=== PATIENT | male | born 1945 | race Caucasian/White ===

== ENCOUNTER 2018-11-12 17:49 | Inpatient (IN) | payer MEDICARE, OTHER ==
[~2018-11-12] VITALS: Ht 165.1 cm; Wt 72.6 kg
[~2018-11-12 17:49] MED LIST: ACET325T53 PO; ATOR40TA PO; BUPR-96 PO; DIVA500T4 PO; HYDR-4384 PO; LISI-607 PO; MAGN400O6 PO; NITR0.4T48 SL; PEG15DRO4 EACHEYE; TRAZ-214 PO
--- NOTE | 2018-11-12 18:10 | NUR ---
BIB FACILITY STAFF FOR PSYCH EVAL. AGRESSIVE AND VERBALLY ABUSIVE TO STAFF. NO DISTRESS NOTED, KEPT COMFORTABLE. WILL CONTINUE TO MONITOR.
--- NOTE | 2018-11-12 18:22 | NUR ---
CALLED PINKY ON HER WAY
[2018-11-12 18:46] LABS: BASOPHILS % (AUTO) 0.4 % (0.0-2.0); EOSINOPHILS % (AUTO) 3.4 % (0.0-6.0); HEMATOCRIT 41 % (39-51); HEMOGLOBIN 14.1 g/dL (13.5-17.5); LYMPHOCYTES # (AUTO) 1.6 /CMM (0.8-4.8); LYMPHOCYTES % (AUTO) 16.3 % (20.0-44.0); MEAN CORPUSCULAR HGB CONC 34 g/dl (31.0-36.0); MEAN CORPUSCULAR VOLUME 93 fL (80-96); MONOCYTES # (AUTO) 0.9 /CMM (0.1-1.30); MONOCYTES % (AUTO) 8.7 % (2.0-12.0); NEUTROPHILS % (AUTO) 71.2 % (43.0-81.0); PLATELET COUNT (AUTO) 227 /CMM (150-450); RED BLOOD CELL COUNT(AUTO) 4.42 MIL/uL (4.5-6.0); WHITE BLOOD COUNT (AUTO) 9.9 K/uL (4.3-11.0)
[2018-11-12 18:55] LABS: CALCIUM, SERUM 8.7 mg/dL (8.5-10.1); CARBON DIOXIDE 30 mmol/L (21-32); CHLORIDE 106 mmol/L (98-107); CREATININE 0.9 mg/dL (0.6-1.3); GLUCOSE 106 mg/dL (74-106); POTASSIUM 4.5 mmol/L (3.5-5.1); SODIUM SERUM 140 mmol/L (136-145); UREA NITROGEN, BLOOD 20 mg/dL (7-18)
[2018-11-12 19:05] LABS: ALANINE AMINOTRANSFERASE 23 U/L (12-78); ALBUMIN 3.4 g/dL (3.4-5.0); ALCOHOL, BLOOD < 3 mg/dL (0-0); ALKALINE PHOSPHATASE 135 U/L (46-116); ASPARTATE AMINOTRANSFERASE 17 U/L (15-37); BILIRUBIN,DIRECT 0.1 mg/dL (0.0-0.2); BILIRUBIN,TOTAL 0.2 mg/dL (0.2-1.0); TOTAL PROTEIN, SERUM 7.9 g/dL (6.4-8.2)
[2018-11-12 19:06] LABS: SALICYLATE < 2.8 mg/dL (2.8-20.0)
--- NOTE | 2018-11-12 19:28 | NUR ---
OBTAINED URINE SAMPLE AND SENT TO LAB. ENDORSED TO [facility] FOR JESUS.
[2018-11-12] MEDS ORDERED: IV NS 0.9% 1,000 ML BAG IV ONE (19:30)
--- NOTE | 2018-11-12 19:30 | NUR ---
CALLED NURSING SUP FOR TELE BED.
[2018-11-12 19:31] LABS: APPEARANCE,URINE Slightly Cloudy (CLEAR); BILIRUBIN,URINE Negative (NEGATIVE); BLOOD, URINE Moderate Ery/uL (NEGATIVE); COLOR,URINE Yellow (YELLOW); KETONES,URINE Trace (NEGATIVE); LEUKOCYTE ESTERASE ,URINE Large (NEGATIVE); NITRITE, URINE Positive (NEGATIVE); PH,URINE 5.5 (5.0-8.0); PROTEIN,URINE 30 mg/dl (NEGATIVE); UGLUCOSE Negative (NEGATIVE); UROBILINOGEN,URINE 0.2 EU/dL (0.2)
[2018-11-12 20:07] LABS: WBC,URINE 51-80 /HPF (0-3)
[2018-11-12 20:08] LABS: BACTERIA,URINE Many /HPF (None Seen); SQUAMOUS EPITHELIAL CELL,UR Few /HPF (None Seen)
[2018-11-12] MEDS ORDERED: ACETAMINOPHEN 325 MG TABLET ONE (20:09)
--- NOTE | 2018-11-12 20:27 | NUR ---
PT GOING TO 214-A.
[2018-11-12] MEDS ORDERED: LORAZEPAM INJ 2 MG/ML VIAL ONE (20:28)
[2018-11-12] MEDS ORDERED: LORAZEPAM 1 MG TABLET PO ONE (20:30)
[2018-11-12] MEDS ORDERED: LORAZEPAM INJ 2 MG/ML VIAL IV ONE (20:30)
[2018-11-12] MEDS ORDERED: ACETAMINOPHEN 325 MG TABLET PO ONE (20:30)
--- NOTE | 2018-11-12 20:38 | NUR ---
REPORT CALLED TO JENNIFER DIAMOND.
--- NOTE | 2018-11-12 21:00 | NUR ---
GPS HIGHWAY SAFETY ENGINEER NOTES: ADMITTED A 73YO MALE FROM [facility] ON [address] HOLD FOR GRAVE DISABILITY, PER HOLD, PATIENT IS CONFUSED, DISORIENTED, STATED THAT THEY ARE FORCING ME TO EAT AND THAT THEY PUT SOMETHING IN MY FOOD. ALSO STATED IN THE HOLD THAT WHILE AT THE ER, PATIENT IS CONSTANTLY YELLING AND SCREAMING. PATIENT IS UNDER THE CARE OF DR. BRAXTON AND IRISH MERRILL,PAINT MIXER MACHINE FOR [facility]. UPON FACE TO FACE EVALUATION, PATIENT PRESENTS ALERT AND ORIENTED X1, VERY CONFUSED, DISORGANIZED, UNPREDICTABLE, YELLING AND SCREAMING. PATIENT HAS LEFT SIDED WEAKNESS SUCH THAT HE IS CONFINED TO BED AND NEEDS TO BE REPOSITIONED Q2H. SKIN AND BODY ASSESSMENT DONE WITH REMY AND ARTEMIO HERRERA'S- NO NOTED SKIN ISSUES THIS TIME. SACRAL AREA IS CLEAR. BELONGINGS AND CONTRABAND WERE CHECKED. PATIENT IS A ETHIOPIAN SPEAKER AND WHEN TALKED TO PATIENT DOES NOT REALLY ANSWER THE QUESTIONS WELL, AND THUS UNABLE TO CARRY A MEANINGFUL CONVERSATION. MED RECON DONE BY IRISH MERRILL, HE CAME INTO THE UNIT TO DO ASSESSMENT. CARE PLAN STARTED. Q15 MIN CHECKS INITIATED. PATIENT DOES NOT SHOW ANY SIGNS, NOR VERBALIZED ANY SUICIDAL THOUGHTS OR PLANS THIS TIME. WILL MONITOR PATIENT FOR ANY CHANGES IN MOOD AND BEHAVIOR. WILL ENDORSE PATIENT TO THE NEXT SHIFT.
[2018-11-12] MEDS ORDERED: CEPHALEXIN MONOHYDRATE 500 MG CAPSULE PO STA (21:25)
[2018-11-12 21:30] VITALS: BP 155/93
[2018-11-12] MEDS ORDERED: NA P133E RC (22:00)
[2018-11-12] MEDS ORDERED: TRAZ-214 PO (22:00)
[2018-11-12] MEDS ORDERED: BISA10SU61 RC (22:00)
[2018-11-12] MEDS ORDERED: MAG HYDROX/AL HYDROX/SIMETH 30 ML UDC PO PRN (22:00)
[2018-11-12] MEDS ORDERED: ASPI-1169 PO (22:00)
[2018-11-12] MEDS ORDERED: ACETAMINOPHEN 325 MG TABLET PO PRN (22:00)
[2018-11-13] MEDS ORDERED: NA PHOS,M-B/NA PHOS,DI-BA 1 EA ENEMA RC PRN
[2018-11-13] MEDS ORDERED: NITROGLYCERIN 0.4 MG/TAB BOTTLE SL PRN
[2018-11-13] MEDS ORDERED: BISACODYL SUPP (10 MG) 10 MG/SUPP.RECT SUPP.RECT RC PRN
[2018-11-13] MEDS ORDERED: MAGNESIUM HYDROXIDE 30 ML UDC PO PRN
[2018-11-13 02:58] LABS: OCCULT BLOOD STOOL NEGATIVE (NEGATIVE)
[2018-11-13] MEDS: CEPHALEXIN MONOHYDRATE 500 MG CAPSULE PO SCH ×5 (06:30→23:07)
[2018-11-13 07:40] LABS: CREATININE 0.8 mg/dL (0.6-1.3)
[2018-11-13 07:45] LABS: CHOLESTEROL 87 mg/dL (<200); HDL CHOLESTEROL 33 mg/dL (40-60); LDL 50 mg/dL (0-99); TRIGLYCERIDES 68 mg/dL (30-150)
[2018-11-13 08:00] VITALS: BP 107/73
[2018-11-13] MEDS: LISINOPRIL (5MG) 5 MG TABLET PO SCH ×2 (08:33→16:34)
[2018-11-13] MEDS: ASPIRIN 81 MG TAB.CHEW PO SCH (08:33)
[2018-11-13] MEDS: ACETAMINOPHEN 325 MG TABLET PO SCH ×2 (08:33→16:35)
[2018-11-13] MEDS: POLYVINYL ALCOHOL 15 ML BOTTLE EACHEYE SCH ×2 (08:35→16:47)
--- NOTE | 2018-11-13 10:22 | NUR ---
SW contacted [facility] Address: [place] [address] and spoke with Rekha, safety coordinator who stated pt will return to their facility.
--- NOTE | 2018-11-13 11:29 | NUR ---
WOUND CARE CONSULT: PT PRESENTS WITH INCONTINENCE. RECOMMENDATIONS MADE FOR SKIN PROTECTION. DISCUSSED WITH NURSING STAFF. CURRENT YOLANDA SCORE IS 14. THICKENED TOENAILS NOTED. WILL SEE PRN. IN AGREEMENT WITH PLAN OF CARE.
[2018-11-13] MEDS ORDERED: Z GUARD REMEDY 2 OZ OINT TP PRN (12:00)
[2018-11-13] MEDS: Z GUARD REMEDY 2 OZ OINT TP SCH (13:35)
--- NOTE | 2018-11-13 14:07 | NUR ---
Group Note: Pt refused to participate in the group session when approached by the SW. Pt appeared to be confused, disoriented and disorganized.
[2018-11-13] MEDS: LORAZEPAM 0.5 MG TABLET PO PRN (14:22)
--- NOTE | 2018-11-13 14:27 | NUR ---
GPS/RN-NOTES PATIENT SCREAMING AND YELLING IN MACEDONIAN USING FOUL LANGUAGES, ONE MACEDONIAN SPEAKING STAFF TALK AND REDIRECTED PATIENT. PER STAFF PATIENT IS TALKING NONSENSICAL. ATIVAN 0.5MG P.O GIVEN PRN ORDER. WILL CONT. MONITORING FOR SAFETY AND BEHAVIOR.ALL NEEDS ATTENDED AND ANTICIPATED.
--- NOTE | 2018-11-13 15:28 | NUR ---
SW contacted pts daughter Jeanne [phone] for collateral information and discharge planning. SW also discussed pts treatment plan with daughter who agreed. 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 Daughter stated that pt is also partially blind. Daughter mentioned that she is aware of pts verbal aggression and stated he has been that way all his life.
[2018-11-13 16:00] VITALS: BP 164/86
[2018-11-13] MEDS: DIVALPROEX SODIUM 125 MG CAP.SPRINK PO SCH ×2 (16:33→22:00)
[2018-11-13 20:29] VITALS: BP 136/79
[2018-11-13] MEDS: QUETIAPINE FUMARATE 25 MG TABLET PO SCH (22:00)
[2018-11-13] MEDS: TEMAZEPAM 7.5 MG CAPSULE PO PRN (22:01)
[2018-11-13] MEDS: ATORVASTATIN 40 MG TABLET PO SCH (22:03)
[2018-11-14] MEDS: CEPHALEXIN MONOHYDRATE 500 MG CAPSULE PO SCH ×3 (05:49→17:01)
[2018-11-14 08:00] VITALS: BP 126/77
[2018-11-14] MEDS: DIVALPROEX SODIUM 125 MG CAP.SPRINK PO SCH ×2 (09:10→21:18)
[2018-11-14] MEDS: ASPIRIN 81 MG TAB.CHEW PO SCH (09:10)
[2018-11-14] MEDS: ACETAMINOPHEN 325 MG TABLET PO SCH ×2 (09:10→16:38)
[2018-11-14] MEDS: LISINOPRIL (5MG) 5 MG TABLET PO SCH ×2 (09:11→16:38)
[2018-11-14] MEDS: Z GUARD REMEDY 2 OZ OINT TP SCH (09:12)
[2018-11-14] MEDS: POLYVINYL ALCOHOL 15 ML BOTTLE EACHEYE SCH ×2 (09:12→16:47)
--- NOTE | 2018-11-14 09:17 | NUR ---
INITIAL DISCHARGE PLAN: Per daughter Jeanne [phone] pt will return to [facility] [place] Address: [address] , [place] [address] . Rachell confirmed with Rekha precision farming coordinator who stated pt is able to return once stable. SW will help form a safe and proper discharge in collaboration with .
--- NOTE | 2018-11-14 15:58 | NUR ---
Group Note: Pt refused to participate in the group session when approached by the SW. Pt appeared to be confused, disoriented and disorganized.
[2018-11-14 16:00] VITALS: BP 133/79
[2018-11-14] MEDS: QUETIAPINE FUMARATE 25 MG TABLET PO SCH ×2 (16:37→22:07)
[2018-11-14] MEDS: LORAZEPAM 0.5 MG TABLET PO PRN (19:54)
--- NOTE | 2018-11-14 19:58 | NUR ---
PATIENT YELLING SCREAMING, ATIVAN 0.5 MG GIVEN, PATIENT SPIT OUT MEDICATION, SENIOR FINANCIAL MADE AWARE, PATIENT ALSO STATED, "NO, NO, NO" UNABLE TO UNDERSTAND, PATIENT IS A/O X1, CONFUSED.
[2018-11-14 20:00] VITALS: BP 120/81
[2018-11-14] MEDS: TEMAZEPAM 7.5 MG CAPSULE PO PRN (20:21)
[2018-11-14] MEDS: HYDROCODONE/APAP 5/325MG 1 EACH TABLET PO PRN (20:22)
--- NOTE | 2018-11-14 20:25 | NUR ---
PATIENT YELLING SCREAMING, CONFUSED, TEMAZEPAM 7.5 MG AND NORCO 5/325 MG TAB PO GIVEN
--- NOTE | 2018-11-14 22:00 | NUR ---
REFUSED CALAMINE LOTION, PREFERS ANOTHER ONE, SAID THAT HE WILL LET ME KNOW IN THE MORNING.
[2018-11-14] MEDS: ATORVASTATIN 40 MG TABLET PO SCH (22:11)
[2018-11-15] MEDS: HYDROCODONE/APAP 5/325MG 1 EACH TABLET PO PRN (05:13)
[2018-11-15] MEDS: CEPHALEXIN MONOHYDRATE 500 MG CAPSULE PO SCH ×5 (05:54→23:44)
[2018-11-15 08:00] VITALS: BP 110/68
[2018-11-15] MEDS: POLYVINYL ALCOHOL 15 ML BOTTLE EACHEYE SCH ×2 (08:48→17:24)
[2018-11-15] MEDS: ASPIRIN 81 MG TAB.CHEW PO SCH (08:49)
[2018-11-15] MEDS: ACETAMINOPHEN 325 MG TABLET PO SCH ×2 (08:50→17:27)
[2018-11-15] MEDS: LISINOPRIL (5MG) 5 MG TABLET PO SCH ×2 (08:50→17:25)
[2018-11-15] MEDS: DIVALPROEX SODIUM 125 MG CAP.SPRINK PO SCH ×2 (08:50→21:20)
[2018-11-15] MEDS: Z GUARD REMEDY 2 OZ OINT TP SCH (08:51)
[2018-11-15] MEDS: QUETIAPINE FUMARATE 25 MG TABLET PO SCH ×3 (08:51→21:19)
--- NOTE | 2018-11-15 14:58 | NUR ---
GROUP NOTE: Pt unable to participate in group due to his medical condition. Pt is unable to walk due to his body being half paralyzed and also being partly blind. Pt refuses to leave his room.
[2018-11-15 16:00] VITALS: BP 127/85
--- NOTE | 2018-11-15 18:52 | NUR ---
Arrived and received patient in bedroom sleeping. Patient is alert and oriented x1 to self only. Patient is confused, incontinent and bed bound. Patient is medication compliant and takes medication crushed in apple sauce. Redirected and reoriented patient to unit and surroundings. Assisted patient in completing ADLs as tolerated. Q15 minute safety and behavior checks as needed. Patient is in bedroom sleeping with no distress noted at this time. Will continue with plan of care.
[2018-11-15 20:00] VITALS: BP 119/77
[2018-11-15] MEDS: ATORVASTATIN 40 MG TABLET PO SCH (21:20)
[2018-11-16] MEDS: LORAZEPAM 0.5 MG TABLET PO PRN (04:42)
--- NOTE | 2018-11-16 04:44 | NUR ---
RN NOTES PATIENT YELLING, SCREAMING, ATIVAN 0.5 MG GIVEN WITH APPLESAUCE. WILL CONTINUE TO MONITOR PATIENT.
[2018-11-16] MEDS: CEPHALEXIN MONOHYDRATE 500 MG CAPSULE PO SCH ×3 (05:51→17:35)
[2018-11-16 08:00] VITALS: BP 130/82
[2018-11-16] MEDS: DIVALPROEX SODIUM 125 MG CAP.SPRINK PO SCH ×2 (09:41→21:05)
[2018-11-16] MEDS: POLYVINYL ALCOHOL 15 ML BOTTLE EACHEYE SCH ×2 (09:41→17:33)
[2018-11-16] MEDS: ASPIRIN 81 MG TAB.CHEW PO SCH (09:41)
[2018-11-16] MEDS: ACETAMINOPHEN 325 MG TABLET PO SCH ×2 (09:41→17:34)
[2018-11-16] MEDS: LISINOPRIL (5MG) 5 MG TABLET PO SCH ×2 (09:42→17:34)
[2018-11-16] MEDS: QUETIAPINE FUMARATE 25 MG TABLET PO SCH ×3 (09:42→21:06)
[2018-11-16] MEDS: Z GUARD REMEDY 2 OZ OINT TP SCH (09:43)
--- NOTE | 2018-11-16 12:30 | NUR ---
len li fuse spooler in to see pt.
[2018-11-16] MEDS: MAGNESIUM HYDROXIDE 30 ML UDC PO PRN (13:22)
--- NOTE | 2018-11-16 13:22 | NUR ---
with milling machine operator established pt. constipated.given mom 1 oz.
[2018-11-16 16:00] VITALS: BP 142/89
--- NOTE | 2018-11-16 18:46 | NUR ---
no change in status.
[2018-11-16 20:16] VITALS: BP 128/92
[2018-11-16] MEDS: HYDROCODONE/APAP 5/325MG 1 EACH TABLET PO PRN (20:20)
[2018-11-16] MEDS: ATORVASTATIN 40 MG TABLET PO SCH (21:06)
[2018-11-16] MEDS: TEMAZEPAM 7.5 MG CAPSULE PO PRN (21:10)
--- NOTE | 2018-11-16 21:22 | NUR ---
AT 2020, C/O HEADACHE, MOANING, RESTLESS, SCREAMING,, NORCO 5/325 MG TAB PO GIVEN.
[2018-11-17] MEDS: CEPHALEXIN MONOHYDRATE 500 MG CAPSULE PO SCH ×5 (00:44→23:03)
[2018-11-17 08:00] VITALS: BP 143/96
[2018-11-17] MEDS: POLYVINYL ALCOHOL 15 ML BOTTLE EACHEYE SCH ×2 (09:49→17:26)
[2018-11-17] MEDS: LISINOPRIL (5MG) 5 MG TABLET PO SCH ×2 (09:50→17:25)
[2018-11-17] MEDS: DIVALPROEX SODIUM 125 MG CAP.SPRINK PO SCH ×2 (09:51→21:38)
[2018-11-17] MEDS: QUETIAPINE FUMARATE 25 MG TABLET PO SCH ×3 (09:51→21:38)
[2018-11-17] MEDS: ASPIRIN 81 MG TAB.CHEW PO SCH (09:51)
[2018-11-17] MEDS: Z GUARD REMEDY 2 OZ OINT TP SCH (09:51)
[2018-11-17] MEDS: ACETAMINOPHEN 325 MG TABLET PO SCH ×2 (09:51→17:25)
[2018-11-17] MEDS: HYDROCODONE/APAP 5/325MG 1 EACH TABLET PO PRN ×2 (12:32→23:03)
[2018-11-17 16:00] VITALS: BP 119/80
--- NOTE | 2018-11-17 18:21 | NUR ---
RN NOTES PATIENT ABLE TO TAKE ALL MEDICATIONS FOR THE WHOLE SHIFT. PAIN MEDICATIONS ADMINISTERED ACCORDINGLY. ALL NEEDS MET AT THIS TIME
[2018-11-17 20:07] VITALS: BP 102/81
[2018-11-17] MEDS: ATORVASTATIN 40 MG TABLET PO SCH (21:38)
[2018-11-17] MEDS: TEMAZEPAM 7.5 MG CAPSULE PO PRN (21:39)
[2018-11-18] MEDS: CEPHALEXIN MONOHYDRATE 500 MG CAPSULE PO SCH ×4 (05:48→23:34)
[2018-11-18 08:00] VITALS: BP 112/88
[2018-11-18] MEDS: QUETIAPINE FUMARATE 25 MG TABLET PO SCH ×3 (08:03→21:12)
[2018-11-18] MEDS: LISINOPRIL (5MG) 5 MG TABLET PO SCH ×2 (08:03→16:37)
[2018-11-18] MEDS: ACETAMINOPHEN 325 MG TABLET PO SCH ×2 (08:03→16:36)
[2018-11-18] MEDS: DIVALPROEX SODIUM 125 MG CAP.SPRINK PO SCH ×2 (08:03→21:12)
[2018-11-18] MEDS: ASPIRIN 81 MG TAB.CHEW PO SCH (08:03)
[2018-11-18] MEDS: Z GUARD REMEDY 2 OZ OINT TP SCH (08:08)
[2018-11-18] MEDS: POLYVINYL ALCOHOL 15 ML BOTTLE EACHEYE SCH ×2 (08:10→16:40)
[2018-11-18] MEDS: LORAZEPAM 0.5 MG TABLET PO PRN (10:54)
[2018-11-18] MEDS: MAGNESIUM HYDROXIDE 30 ML UDC PO PRN (10:55)
--- NOTE | 2018-11-18 10:55 | NUR ---
GPS/RN-NOTES PATIENT SCREAMING AND YELLING IN MAORI USING FOUL LANGUAGES,MAORI SPEAKING STAFF TALK AND REDIRECTED PATIENT. PER STAFF PATIENT IS TALKING NONSENSICAL. ATIVAN 0.5MG P.O GIVEN PRN ORDER. WILL CONT. MONITORING FOR SAFETY AND BEHAVIOR.ALL NEEDS ATTENDED AND ANTICIPATED.
--- NOTE | 2018-11-18 10:55 | NUR ---
TRUDI contacted pts daughter Jeanne [phone] to informed her pt will be discharging on Sunday11/19/18, TRUDI unable to leave voicemail due to mailbox not being set up yet.
--- NOTE | 2018-11-18 14:37 | NUR ---
Group Note: Pt refused to participate in the group session when approached by the SW. Pt appeared to be confused, disoriented and disorganized. Pt kept speaking in Swedish even after the SW stated that she does not understand.
[2018-11-18 16:00] VITALS: BP 143/85
[2018-11-18 19:56] VITALS: BP 164/93
[2018-11-18] MEDS: ATORVASTATIN 40 MG TABLET PO SCH (21:12)
[2018-11-18 22:00] VITALS: BP 134/78
[2018-11-19] MEDS: CEPHALEXIN MONOHYDRATE 500 MG CAPSULE PO SCH (05:39)
[2018-11-19 08:00] VITALS: BP 134/77
[2018-11-19] MEDS: ACETAMINOPHEN 325 MG TABLET PO SCH (08:16)
[2018-11-19] MEDS: ASPIRIN 81 MG TAB.CHEW PO SCH (08:16)
[2018-11-19] MEDS: QUETIAPINE FUMARATE 25 MG TABLET PO SCH (08:16)
[2018-11-19 08:17] VITALS: BP 134/77
[2018-11-19] MEDS: LISINOPRIL (5MG) 5 MG TABLET PO SCH (08:17)
[2018-11-19] MEDS: DIVALPROEX SODIUM 125 MG CAP.SPRINK PO SCH (08:17)
[2018-11-19] MEDS: POLYVINYL ALCOHOL 15 ML BOTTLE EACHEYE SCH (08:39)
[2018-11-19] MEDS: Z GUARD REMEDY 2 OZ OINT TP SCH (08:41)
[2018-11-19] MEDS: LORAZEPAM 0.5 MG TABLET PO PRN (08:41)
--- NOTE | 2018-11-19 11:48 | NUR ---
DISCHARGE NOTE: Pt will be discharged at 12:30pm via [facility] to [facility] Address: [place] [address] . Pts daughter Jeanne [phone] has been notified and agreed with discharge. Pts mood was anxious with congruent affect. Pt denied suicidal/homicidal ideation and denied visual/auditory hallucinations. Pt will be under the care of Psychiatrist: Dr. Mario, located at [address] [place] [id number]; and Swamper: Dr. Louise, located at [address] [place] [address] [address], [place] [address]; . The multidisciplinary exitcare form was done, printed, signed, and given to the patient.
--- NOTE | 2018-11-19 13:14 | NUR ---
GPS DISCHARGE NOTE: PT DISCHARGE VIA AMBULANCE TO [facility] AT [address], [place] [address]. PT IN STABLE CONDITION NO S/S DISTRESS NOTED, DENIES SI/HI. PT CONFUSED, FORGETFUL. VSS , A/O X1, NEED ASSISTANCE. EXIT CARE DONE PRINTED, PT UNABLE TO SIGN PAPERS. SKIN ASSESSMENT DONE SKIN CLEAN AND INTACT. ALL BELONGINGS RETURNED TO PT REPORT GIVEN TO FACILITY RN .
== END 2018-11-19 13:12 | DRG 885 ==
LOC: ER 17:49 → GPS 20:28
PROVIDERS: ADMIT Psychiatry & Neurology Psychiatry; ATTEND Hospitalist
DX: F29 Unspecified psychosis not due to a substance or known physiological condition (principal); I69.354 Hemiplegia and hemiparesis following cerebral infarction affecting left non-dominant side; N39.0 Urinary tract infection, site not specified; F03.91 Unspecified dementia, unspecified severity, with behavioral disturbance; F32.9 Major depressive disorder, single episode, unspecified; E78.5 Hyperlipidemia, unspecified; E03.9 Hypothyroidism, unspecified; I10 Essential (primary) hypertension; I69.320 Aphasia following cerebral infarction; F10.20 Alcohol dependence, uncomplicated; E66.9 Obesity, unspecified; Z68.26 Body mass index [BMI] 26.0-26.9, adult
CPT/HCPCS: 36415; 70450-TC; 71045-TC; 80048-TC; 80061-TC; 80076-TC; 80164-TC; 80305; 81000-TC; 82272-TC; 82565-TC; 84484-TC; 85025-TC; 87081-TC; 87086-TC; 87186-TC; 97530-TC; G0480; J2060; J7030